=== PATIENT | male | born 1945 | race Caucasian/White ===

== ENCOUNTER 2018-04-02 11:35 | Emergency (ER) | payer MEDICARE, OTHER ==
[2018-04-02 11:40] VITALS: BMI 36.6
--- NOTE | 2018-04-02 12:22 | ED PDOC ---
HPI: SOB/CHF/COPD Time Seen by Provider: 04/02/18 11:49 Chief Complaint (Nursing): Respiratory Distress History Per: Patient History/Exam Limitations: no limitations (patient is referred by Dr. You Ventura with an x-ray report from 03/31 and a note to evaluate patient for pneumonia. Apparently the patient was seen last week because of shortness of breath. He denies fever or chills. There is no cough. He denies chest or leg swelling.) Current Symptoms Are (Timing): Still Present Past Medical History Reviewed: Historical Data, Nursing Documentation, Vital Signs Vital Signs: Last Vital Signs Temp 98.2 F 04/02/18 11:40 Pulse 81 04/02/18 11:40 Resp 22 04/02/18 12:03 BP 123/59 L 04/02/18 11:40 Pulse Ox 93 L 04/02/18 12:03 - Medical History PMH: Arthritis, Depression, HTN, Hypercholesterolemia Denies: Chronic Kidney Disease - Surgical History Surgical History: Hernia Repair - Family History Family History: States: No Known Family Hx - Living Arrangements Living Arrangements: With Friends/Others - Social History Current smoker - smoking cessation education provided: Yes (60 pack years) Alcohol: Social Drugs: Denies - Home Medications Home Medications: Ambulatory Orders Medication Instructions Recorded Amlodipine Besylate/Benazepril 1 cap PO DAILY 04/02/18 [Lotrel 5-10 mg Capsule] Furosemide [Lasix] 20 mg PO QAM #15 tab 04/02/18 Levofloxacin [Levaquin] 750 mg PO DAILY #7 tablet 04/02/18 Simvastatin [Zocor] 40 mg PO DAILY 04/02/18 - Allergies Allergies/Adverse Reactions: Allergies Allergy/AdvReac Type Severity Reaction Status Date / Time No Known Allergies Allergy Verified 06/21/14 10:48 Curb-65 Severity Score - CURB-65 Severity Score Confusion: No Bun >19mg/dl (>7mmol/L): No Respiratory Rate greater than/equal to 30: No Systolic BP <90 or Diastolic BP less than/equal 60mmHg: No Age >64: No Curb-65 Score: 0 Percentage 30-day mortality: 0.6% Review of Systems ROS Statement: Except As Marked, All Systems Reviewed And Found Negative Constitutional: Negative for: Fever, Chills Cardiovascular: Negative for: Chest Pain Respiratory: Positive for: Shortness of Breath. Negative for: Cough Gastrointestinal: Negative for: Nausea, Vomiting Physical Exam - Reviewed Nursing Documentation Reviewed: Yes Vital Signs Reviewed: Yes - Physical Exam Appears: Positive for: Well, Non-toxic, No Acute Distress Head Exam: Positive for: ATRAUMATIC, NORMAL INSPECTION, NORMOCEPHALIC Skin: Positive for: Warm, Cyanosis Eye Exam: Positive for: Normal appearance, EOMI, PERRL ENT: Positive for: Normal ENT Inspection Neck: Positive for: Normal, Painless ROM, Supple Cardiovascular/Chest: Positive for: Regular Rate, Rhythm Respiratory: Positive for: Decreased Breath Sounds, Wheezing. Negative for: Accessory Muscle Use Gastrointestinal/Abdominal: Positive for: Normal Exam, Soft Back: Positive for: Normal Inspection Extremity: Positive for: Normal ROM Neurologic/Psych: Positive for: Alert, Oriented - Laboratory Results Result Diagrams: 04/02/18 12:43 04/02/18 12:43 - ECG O2 Sat by Pulse Oximetry: 93 Medical Decision Making Medical Decision Making: patient does not want to be admitted despite being of benefit. Case d/w PMD You Ventura. Wants to started Levaquin. Agrees with diuretics. Disposition - Clinical Impression Clinical Impression: Moderate COPD (chronic obstructive pulmonary disease), Mild congestive heart failure - Patient ED Disposition Is Patient to be Admitted: No Doctor Will See Patient In The: Office Counseled Patient/Family Regarding: Diagnosis, Need For Followup, Rx Given - Disposition Disposition: Routine/Home Disposition Time: 14:00 Condition: FAIR Prescriptions: Furosemide [Lasix] 20 mg PO QAM #15 tab Levofloxacin [Levaquin] 750 mg PO DAILY #7 tablet Instructions: Chronic Obstructive Pulmonary Disease (COPD), Including Emphysema, Heart Failure, Adult Forms: [employer] (Uzbek) - POA Present On Arrival: None
[2018-04-02] MEDS ORDERED: Albuterol-Ipratrop 3 mg / 0.5 (3 ml) UD INH STA (12:25)
[2018-04-02] MEDS ORDERED: Albuterol-Ipratrop 3 mg / 0.5 (3 ml) UD ONE (12:29)
[2018-04-02 12:47] LABS: ABG ALLEN TEST YES; ARTERIAL BLOOD GAS HCO3 28.8 mmol/L (21-28); ARTERIAL BLOOD GAS O2 SAT 93.6 % (95-98); ARTERIAL BLOOD GAS PCO2 52 mm/Hg (35-45); ARTERIAL BLOOD GAS PO2 57 mm/Hg (80-100); ARTERIAL BLOOD GAS TCO2 33.8 mmol/L (22-28)
--- NOTE | 2018-04-02 13:21 | RAD ---
Date of service: 04/02/2018 HISTORY: dyspnea. abnormal outpatient CXR w/ effusion COMPARISON: Chest radiograph dated 06/21/2014. TECHNIQUE: Chest PA and lateral FINDINGS: LUNGS: Pulmonary vascular congestion. Right basilar atelectasis. PLEURA: Small right pleural effusion. No appreciable pneumothorax. CARDIOVASCULAR: Aortic atherosclerotic calcifications. Cardiomediastinal silhouette stably enlarged. OSSEOUS STRUCTURES: Unchanged. VISUALIZED UPPER ABDOMEN: Normal. OTHER FINDINGS: None. IMPRESSION: New vascular congestion. Small right pleural effusion.
[2018-04-02 13:26] LABS: BASO # 0.1 K/uL (0.0-0.2); BASO % 1.1 % (0.0-2.0); EOS # 0.1 K/uL (0.0-0.7); EOS % 1.5 % (0.0-4.0); HEMOGLOBIN 17.6 g/dL (12.0-18.0); LYMPH # 2.3 K/uL (1.0-4.3); LYMPH % 26.4 % (20.0-40.0); MEAN CELL VOLUME 104.8 fl (80.0-94.0); MEAN CORPUSCULAR HEMOGLOBIN 34.4 pg (27.0-31.0); MEAN CORPUSCULAR HGB CONC 32.8 g/dL (33.0-37.0); MEAN PLATELET VOLUME 9.2 fl (7.2-11.7); MONO # 0.6 K/uL (0.0-0.8); MONO % 6.4 % (0.0-10.0); NEUT # 5.5 K/uL (1.8-7.0); NEUT % 64.6 % (50.0-75.0); NRBC % 0.1 % (0.0-0.0); RBC 5.11 Mil/uL (4.40-5.90); RED CELL DISTRIBUTION WIDTH 14.8 % (11.5-14.5); WHITE BLOOD COUNT 8.6 K/uL (4.8-10.8)
[2018-04-02 13:38] LABS: B-TYPE NATRIURETIC PEPTIDE 307 pg/ml (0-900)
[2018-04-02 14:01] LABS: ALT/SGPT 36 U/L (21-72); AST/SGOT 43 U/L (17-59); BLOOD UREA NITROGEN 14 mg/dl (9-20); CALCIUM 9.5 mg/dL (8.4-10.2); GFR NON-AFRICAN AMERICAN > 60
--- NOTE | 2018-04-02 14:18 | CARD ---
APPROVED REPORT Date of service: 04/02/2018 EKG Measurement Heart [id number] <Conclusion> Normal sinus rhythm T wave abnormality, consider lateral ischemia Abnormal ECG
[2018-04-02] MEDS ORDERED: levoFLOXacin 750 MG TAB PO ONE (15:00)
[2018-04-02 15:04] VITALS: BP 133/63; PULSE 77; RESP 23; TEMP 98.6; O2SAT 90
== END 2018-04-02 14:58 | disposition short-term general hospital (02) ==
LOC: H.ER 11:35
DX: J44.9 Chronic obstructive pulmonary disease, unspecified (principal); I50.9 Heart failure, unspecified; Z86.59 Personal history of other mental and behavioral disorders; F17.210 Nicotine dependence, cigarettes, uncomplicated; I11.0 Hypertensive heart disease with heart failure; Z79.899 Other long term (current) drug therapy; E78.00 Pure hypercholesterolemia, unspecified